=== PATIENT | male | born 1970 | race Caucasian/White ===

== ENCOUNTER 2019-09-15 19:41 | Emergency (ER) | payer OTHER ==
[2019-09-15 19:48] VITALS: TEMP 99
--- NOTE | 2019-09-15 20:14 | ED ---
Male Urogenital HPI - General Chief complaint: Urogenital Stated complaint: Male Time Seen by Provider: 09/15/19 19:51 Source: patient Mode of arrival: ambulatory Limitations: no limitations - History of Present Illness Initial comments: Patient is a 49-year-old male presenting to emergency Department with a chief complaint of a boil testicle. Patient states this has been coming and going for the past few months but has never gone distally. Patient states over the last 5 days this is gradually increased in size. Patient states it is not any tender rest but it does get painful when pressure is applied. Patient denies any discharge or erythema at the site. Denies any dysuria, increased frequency or urgency. Patient is not concerned for STDs. Patient denies any penile pain or discharge. Denies any generalized scrotal swelling or testicular tenderness. - Related Data Allergies Allergy/AdvReac Type Severity Reaction Status Date / Time No Known Allergies Allergy Verified 09/15/19 19:47 Review of Systems ROS Statement: Those systems with pertinent positive or pertinent negative responses have been documented in the HPI. ROS Other: All systems not noted in ROS Statement are negative. Past Medical History Past Medical History: No Reported History History of Any Multi-Drug Resistant Organisms: None Reported Past Surgical History: Appendectomy Additional Past Surgical History / Comment(s): polyp removal Smoking Status: Current some day smoker Past Alcohol Use History: Occasional Past Drug Use History: None Reported General Exam Limitations: no limitations General appearance: alert, in no apparent distress Head exam: Present: atraumatic, normocephalic, normal inspection Eye exam: Present: normal appearance, PERRL, EOMI Pupils: Present: normal accommodation ENT exam: Present: normal exam, normal oropharynx, mucous membranes moist, TM's normal bilaterally, normal external ear exam Neck exam: Present: normal inspection, full ROM Respiratory exam: Present: normal lung sounds bilaterally. Absent: respiratory distress, wheezes Cardiovascular Exam: Present: regular rate, normal rhythm, normal heart sounds exam: Present: normal inspection, other (Scrotal mass. Does not appear to be infectious. No discharge.). Absent: testicular tenderness, scrotal swelling, circumcision Extremities exam: Present: normal inspection, full ROM. Absent: tenderness Back exam: Present: normal inspection, full ROM. Absent: tenderness, CVA tenderness (R), CVA tenderness (L) Neurological exam: Present: alert, oriented X3, normal gait Psychiatric exam: Present: normal affect, normal mood Skin exam: Present: warm, dry, intact, normal color Course Vital Signs 09/15/19 09/15/19 19:43 22:41 Temperature 99 F Pulse Rate 69 70 Respiratory 20 18 Rate Blood Pressure 128/84 127/70 O2 Sat by Pulse 97 99 Oximetry Medical Decision Making - Medical Decision Making Patient is 49-year-old male presenting to emergency Department with a chief complaint of boil of testicle. On physical examination this does not appear to be infectious in nature. There is no overlying cellulitic skin changes. No signs of an abscess at this time. No testicular swelling or tenderness. The mass appears to be on the scrotum not on the testicle itself. This appears to more cystic in nature. Minimal pain unless direct pressure applied. UA is unremarkable. Ultrasound reveals an extratesticular mass on the left side of the scrotum. I advised the patient to follow with urologist. Patient was also advised to establish a relationship with a primary care physician. Multiple recommendations given. Return parameters were thoroughly discussed the patient is understanding and agreeable. Case discussed with physician. Patient is not a diabetic. - Lab Data Lab Results 09/15/19 Range/Units 20:17 Urine Color Yellow Urine Appearance Clear (Clear) Urine pH 5.0 (5.0-8.0) Ur Specific [place] 1.024 (1.001-1.035) Urine Protein Negative (Negative) Urine Glucose (UA) Negative (Negative) Urine Ketones Negative (Negative) Urine Blood Negative (Negative) Urine Nitrite Negative (Negative) Urine Bilirubin Negative (Negative) Urine Urobilinogen 2.0 (<2.0) mg/dL Ur Leukocyte Esterase Negative (Negative) Disposition Clinical Impression: Scrotal mass Disposition: HOME SELF-CARE Condition: Stable Instructions (If sedation given, give patient instructions): Hydrocele (ED) Additional Instructions: Follow up with urologist. Establish a relationship with a primary care phys ician. Return to emergency department if symptoms worsen. Is patient prescribed a controlled substance at d/c from ED?: No Referrals: None,Stated [Primary Care Provider] - 1-2 days Goyo Sterling MD [STAFF PHYSICIAN] - 1-2 days Braeden Mc MD [REFERRING] - 1-2 days Aaron Mosley MD [STAFF PHYSICIAN] - 1-2 days Aaron Mendoza MD [STAFF PHYSICIAN] - 1-2 days Time of Disposition: 22:26
[2019-09-15 20:30] LABS: Appearance,Urine Clear (Clear); Bilirubin,Urine Negative (Negative); Blood,Urine Negative (Negative); Color,Urine Yellow; Glucose,Urine (UA) Negative (Negative); Ketones,Urine Negative (Negative); Leukocyte Esterase,Urine Negative (Negative); Nitrite,Urine Negative (Negative); Protein,Urine Negative (Negative); Specific Gravity,Urine 1.024 (1.001-1.035)
--- NOTE | 2019-09-15 21:22 | US ---
EXAMINATION TYPE: US scrotum with doppler. Grayscale and color Doppler Duplex imaging performed of t he scrotum. DATE OF EXAM: 09/15/2019 COMPARISON: NONE CLINICAL HISTORY: scrotal mass x 5 days. Left scrotal mass x 5 days. Pain started today. EXAM MEASUREMENTS: TESTICLES: Right Testicle: 4.8 x 2.6 x 2.4 cm Left Testicle: 4.9 x 3.0 x 2.2 cm EPIDIDYMIS HEAD: Right Epididymis: 1.1 x 1.0 x 1.3 cm Left Epididymis: 0.9 x 1.2 x 1.0 cm Doppler performed to assess for testicular vascularity; bilateral color flow and waveforms are seen. Presence of hydroceles: Right largest pocket seen: 1.0 x 0.7 x 2.0 cm. Left: 2.6 x 1.9 x 1.2 cm. Presence of varicoceles: none seen The patient's palpable area of concern is superior to left testicle and left epididymis. There appe ars to be a heterogeneous area with peripheral vascularity measurin.2 x 2.0 x 1.4 cm. Testicular echotexture is homogenous and symmetric IMPRESSION: Indeterminate extratesticular mass is present. Recommend urological consult. Left greater than right hydrocele.
[2019-09-15 22:42] VITALS: BP 127/70; PULSE 70; RESP 18
== END 2019-09-15 22:43 | disposition home or self-care (01) ==
LOC: EC 19:41
DX: N50.89 Other specified disorders of the male genital organs (principal); F17.200 Nicotine dependence, unspecified, uncomplicated
CPT/HCPCS: 76870; 81003; 93975; 99284